=== PATIENT | female | born 1995 | race Caucasian/White ===

== ENCOUNTER → 2020-03-29 11:05 | Outpatient (BNVA) | payer OTHER, SELFPAY | PROVIDERS: Family Provider Family Medicine; PCP Family Medicine; Visit Provider Nurse Practitioner Women's Health | DX: Z01.419 Encounter for gynecological examination (general) (routine) without abnormal findings (principal); Z30.44 Encounter for surveillance of vaginal ring hormonal contraceptive device | CPT/HCPCS: 88175 ==